=== PATIENT | female | born 1990 ===

== ENCOUNTER 2021-08-18 09:52 | Outpatient (CLI) | payer OTHER | END 2021-08-18 10:40 | disposition home or self-care (01) | LOC: PRENATAL 09:52 | PROVIDERS: ATTEND Obstetrics & Gynecology Maternal & Fetal Medicine | DX: O36.80X0 Pregnancy with inconclusive fetal viability, not applicable or unspecified (principal); Z36.0 Encounter for antenatal screening for chromosomal anomalies ==